=== PATIENT | male | born 1970 | race Caucasian/White ===

== ENCOUNTER 2018-07-12 12:28 | Inpatient (IN) ==
[2018-07-12] MEDS ORDERED: ZOFRAN INJ 4 MG VIAL ONE (12:34)
--- NOTE | 2018-07-12 13:09 | RAD ---
HISTORY: Dizziness, shortness of breath Study: Chest AP portable Comparison: None Findings: The heart is upper limits normal in size. No congestive heart failure is noted. There is a subtle right-sided perihilar infiltrate predominantly in the right upper lobe and suggestive of pneumonia. The remainder of the lung [place] are clear. No pleural effusions are identified. IMPRESSION: Subtle right perihilar pneumonia Reported By:
[2018-07-12 13:17] LABS: BASOPHILS % (AUTO) 0.6 % (0.2-1.0); EOSINOPHILS % (AUTO) 0.4 % (0.9-2.9); HEMATOCRIT 39.2 % (42.0-54.0); HEMOGLOBIN 12.6 g/dL (13.5-18.0); LYMPHOCYTES # (AUTO) 1.5 X10^3/uL (1.3-2.9); LYMPHOCYTES % (AUTO) 20.6 % (21.0-51.0); MEAN CORPUSCULAR HEMOGLOBIN 21.7 pg (27.0-34.0); MEAN CORPUSCULAR HGB CONC 32.2 g/dL (33.0-35.0); MEAN CORPUSCULAR VOLUME 67.5 fL (80.0-100.0); MEAN PLATELET VOLUME 8.8 fL (7.4-11.0); MONOCYTES # (AUTO) 0.5 x10^3/uL (0.3-0.8); NEUTROPHILS # (AUTO) 5.2 x10^3/uL (2.2-4.8); NEUTROPHILS % (AUTO) 71.4 % (42.0-75.0); PLATELET COUNT 220 X10^3/uL (150.0-450.0); RED CELL DISTRIBUTION WIDTH 19.1 % (11.6-16.5); WHITE BLOOD COUNT 7.3 X10^3/uL (3.6-10.0)
[2018-07-12] MEDS ORDERED: NS 1000 ML 1,000 ML ONE ×2 (13:22→15:05)
[2018-07-12] MEDS ORDERED: NS 1000 ML 1,000 ML IV ONE ×2 (13:26→15:08)
[2018-07-12 13:32] LABS: HYPOCHROMASIA 2+; METAMYELOCYTES % 3; PLATELET MORPHOLOGY COMMENT NORMAL (NORMAL)
[2018-07-12 13:33] LABS: ANISOCYTOSIS 1+; MICROCYTOSIS 1+; OVALOCYTES SLIGHT; POIKILOCYTOSIS SLIGHT
[2018-07-12 13:35] LABS: BLOOD UREA NITROGEN 17 mg/dL (7-18); CARBON DIOXIDE 25.7 mmol/L (21-32); CHLORIDE 105 mmol/L (98-107); SODIUM 140 mmol/L (136-145); eGFR NON BLACK RACES > 60 (>60)
--- NOTE | 2018-07-12 13:37 | DR.DIZZY ---
HPI Time seen Time Seen by Provider: 07/12/18 12:48 PCP Primary Care Physician: DALIA CRUZ Complaint Chief Complaint Doctor Comments: He presented via EMS with above c/o onset a shot while ago. There is no associated chest pain. Chief Complaint:: PT. C/O DIZZINESS AND SHORTNESS OF BREATH. PT. STATES HE WAS WORKING AND HAD TO SIT DOWN. Nurses Notes Reviewed Nurses Notes Review: Yes Source History Provided: Patient and EMS Mode of Arrival Mode of Arrival: EMS Timing Onset of Chief Complaint: 07/12/18 Context Stroke Symptoms: None PMH PMH Past Medical History: Yes Past Medical History: Dyslipidemia and Hypertension Past Surgical History: Yes Surgical History: Cholecystectomy and Tonsillectomy Family History History of Family Medical Conditions: Yes Family Medical History: Cancer, Heart Failure and Hypertension Social History Does patient currently use any type of tobacco product: No Have you used tobacco products in the last 12 months: No Type of Tobacco Use: None Does any household member use tobacco: No Alcohol Use: None Do you use any recreational Drugs:: No Lives With: Alone Lives Where: Home infectious screening In the last 2 months have you had wt loss of >10#?: NO Have you had fever, night sweats or hemotysis?: No Have you traveled outside the country in the last 6 months?: No Isolation: Standard ROS Review of Systems Constitutional: No Symptoms Reported Eyes: No Symptoms Reported ENTM: No Symptoms Reported Respiratoy: No Symptoms Reported and Short of Breath Cardiovascular: No Symptoms Reported Gastrointestinal/Abdominal: No Symptoms Reported Genitourinary: No Symptoms Reported Neurological: Dizziness Musculoskeletal: No Symptoms Reported Integumentary: No Symptoms Reported Hematologic/Lymphatic: No Symptoms Reported Endocrine: No Symptoms Reported Psychiatric: No Symptoms Reported PE Vital Signs Vitals: Temperature 97 F Pulse Rate [Apical] 91 Pulse Rate 138 Respiratory Rate 18 Blood Pressure [Left Arm] 113/59 Blood Pressure 109/63 O2 Sat by Pulse Oximetry 100 General Limitations: No Limitations Head Head Exam: Normal Inspection Eyes Eye exam: Normal Appearance and EOMI ENT ENT Exam: Normal Exam, Normal Oropharynx and Mucous Membranes Moist Neck Neck Exam: Normal Inspection, Full ROM and Trachea Midline Chest Chest Inspection: Normal Inspection and Symmetric Chest Wall Rise Respiratory Respiratory Exam: Normal Lung Sounds Bilat and Accessory Muscle Use Cardiovascular Cardiovascular Exam: Irregular Rhythm, +S1 and +S2 Abdominal Exam Abdominal Exam: Normal Inspection and Normal Bowel Sounds Rectal Rectal Exam: Deferred Extremeties Extremities Exam: Normal Inspection and Full ROM Back Back Exam: Normal Inspection Neurologic Neurological Exam: Alert and Oriented X3 Psychiatric Psychiatric Exam: Normal Affect and Normal Mood Skin Skin Exam: Warm, Dry and Normal Color COURSE Reevaluation 1st: Improved 2nd: Improved Education/Counseling Education/Counseling: Patient, Family, Education and Counseling Educated On: Treatment, Diagnosis, Prognosis and Needs for Follow Up ROR Labs Reviewed Laboratory Results Reviewed?: Yes Result Diagrams: 07/12/18 13:07 07/12/18 13:07 Laboratory: WBC 7.3 X10^3/uL (3.6-10.0) 07/12/18 13:07 RBC 5.80 X10^6/uL (4.7-6.0) 07/12/18 13:07 Hgb 12.6 g/dL (13.5-18.0) L 07/12/18 13:07 Hct 39.2 % (42.0-54.0) L 07/12/18 13:07 MCV 67.5 fL (80.0-100.0) L 07/12/18 13:07 MCH 21.7 pg (27.0-34.0) L 07/12/18 13:07 MCHC 32.2 g/dL (33.0-35.0) L 07/12/18 13:07 RDW 19.1 % (11.6-16.5) H 07/12/18 13:07 Plt Count 220 X10^3/uL (150.0-450.0) 07/12/18 13:07 Plt Count Comment Adequate (ADEQUATE) 07/12/18 13:07 MPV 8.8 fL (7.4-11.0) 07/12/18 13:07 Neut % (Auto) 71.4 % (42.0-75.0) 07/12/18 13:07 Lymph % (Auto) 20.6 % (21.0-51.0) L 07/12/18 13:07 [place] % (Auto) 7.0 % (0.0-13.0) 07/12/18 13:07 Eos % (Auto) 0.4 % (0.9-2.9) L 07/12/18 13:07 Baso % (Auto) 0.6 % (0.2-1.0) 07/12/18 13:07 Neut # (Auto) 5.2 x10^3/uL (2.2-4.8) H 07/12/18 13:07 Lymph # (Auto) 1.5 X10^3/uL (1.3-2.9) 07/12/18 13:07 [place] # (Auto) 0.5 x10^3/uL (0.3-0.8) 07/12/18 13:07 Eos # (Auto) 0.0 x10^3/uL (0.0-0.2) 07/12/18 13:07 Baso # (Auto) 0.0 X10^3/uL (0.0-0.1) 07/12/18 13:07 Absolute Nucleated RBC 0.0 /100WBC 07/12/18 13:07 Total Counted 100 07/12/18 13:07 Neutrophils % (Manual) 65 % (39-76) 07/12/18 13:07 Lymphocytes % (Manual) 27 % (13-43) 07/12/18 13:07 Monocytes % (Manual) 4 % (4-9) 07/12/18 13:07 Eosinophils % (Manual) 1 % (0-6) 07/12/18 13:07 Metamyelocytes % 3 07/12/18 13:07 Plt Morphology Comment Normal (NORMAL) 07/12/18 13:07 RBC Morphology Abnormal (NORMAL) 07/12/18 13:07 Hypochromasia 2+ A 07/12/18 13:07 Poikilocytosis Slight A 07/12/18 13:07 Anisocytosis 1+ A 07/12/18 13:07 Microcytosis 1+ A 07/12/18 13:07 Ovalocytes Slight A 07/12/18 13:07 INR Target Range - 07/12/18 13:07 INR 0.99 (0.8-1.3) 07/12/18 13:07 APTT 30.0 SECONDS (22.9-36.5) 07/12/18 13:07 PTT Comment - 07/12/18 13:07 D-Dimer < 100 ng/mL (0-400) 07/12/18 13:07 Sodium 140 mmol/L (136-145) 07/12/18 13:07 Corrected Sodium TNP 07/12/18 13:07 Potassium 3.8 mmol/L (3.5-5.1) 07/12/18 13:07 Chloride 105 mmol/L (98-107) 07/12/18 13:07 Carbon Dioxide 25.7 mmol/L (21-32) 07/12/18 13:07 BUN 17 mg/dL (7-18) 07/12/18 13:07 Creatinine 1.00 mg/dL (0.70-1.30) 07/12/18 13:07 Est GFR (MDRD) Af Amer > 60 (>60) 07/12/18 13:07 Est GFR (MDRD) Non-Af > 60 (>60) 07/12/18 13:07 Glucose 92 mg/dL (65-99) 07/12/18 13:07 Calcium 8.0 mg/dL (8.5-10.1) L 07/12/18 13:07 Creatine Kinase 140 Units/L (39-308) 07/12/18 13:07 CK-MB (CK-2) 2.0 ng/mL (0-4.0) 07/12/18 13:07 CK/CKMB % Calc 1.4 % (<4) 07/12/18 13:07 Troponin I < 0.02 ng/mL (0-1.5) 07/12/18 13:07 TSH 3rd Generation 3.001 uIU/mL (0.358-3.74) 07/12/18 13:07 XRAY XRAY Interpreted by: Radiologist XRAY Findings: CXR: Subtle rt. hilar pneumonia. EKG Rate: 149 [place]: Normal Rhythm: Afib Diagnosis Discharge Problem: New onset a-fib, Acute hypotension, Lobar pneumonia
[2018-07-12 14:08] LABS: CKMB % 1.4 % (<4); CREATINE KINASE 140 Units/L (39-308); TROPONIN I < 0.02 ng/mL (0-1.5)
[2018-07-12] MEDS ORDERED: LANOXIN INJ IVP ONE ×2 (14:18→14:36)
[2018-07-12] MEDS ORDERED: LANOXIN INJ ONE ×2 (14:18→15:05)
[2018-07-12] MEDS ORDERED: DUONEB 0.5 MG/3 MG ONE (16:17)
[2018-07-12] MEDS ORDERED: DUONEB 0.5 MG/3 MG NEB ONE (16:17)
[2018-07-12] MEDS ORDERED: LEVAQUIN PREMIX IV 750 MG 750 MG/150 ML BAG IV ONE (16:36)
[2018-07-12] MEDS ORDERED: LOPRESSOR INJ 5 MG AMP IVP ONE (18:19)
[2018-07-12] MEDS: NS 1000 ML 1,000 ML IV SCH (18:40)
[2018-07-12 19:16] LABS: CKMB % 1.4 % (<4); CREATINE KINASE 130 Units/L (39-308); CREATINE KINASE MB 1.8 ng/mL (0-4.0); TROPONIN I < 0.02 ng/mL (0-1.5)
[2018-07-12] MEDS ORDERED: KLOR-CON PO PRN (19:38)
[2018-07-12] MEDS ORDERED: MICRO K EXTEN CAP 10 MEQ PO PRN (19:38)
[2018-07-12] MEDS ORDERED: K-DUR TAB 20 MEQ PO PRN (19:38)
[2018-07-12] MEDS ORDERED: POTASSIUM CHL 60 MEQ/NS 0.45% 500 ML IV PRN (19:38)
[2018-07-12] MEDS ORDERED: POTASSIUM CHL 40 MEQ/NS 0.45% 500 ML IV PRN (19:38)
[2018-07-12] MEDS ORDERED: K-RIDER 10 MEQ/NS 100 ML 10 MEQ/100 ML BAG IV PRN (19:38)
[2018-07-12] MEDS ORDERED: POTASSIUM CHLORIDE LIQ 20 MEQ UDC PO PRN (19:38)
[2018-07-12] MEDS ORDERED: NEXTERONE IV 150 MG PREMIX* 150 MG/100 ML BAG IV ONE ×2 (20:00→20:13)
[2018-07-12] MEDS ORDERED: HEPARIN SODIUM IN D5W 25,000 UNITS/500 ML BAG IV ONE (20:12)
[2018-07-12] MEDS ORDERED: NEXTERONE IV 360 MG PREMIX* 360 MG/200 ML BAG IV ONE (20:13)
[2018-07-12] MEDS ORDERED: HEPARIN SODIUM INJ 5000 UNITS ONE (20:13)
[2018-07-12] MEDS: PROTONIX TAB 40 MG PO SCH (20:20)
[2018-07-12] MEDS: HEPARIN SODIUM IN D5W 25,000 UNITS/500 ML BAG IV PRN (20:26)
[2018-07-12] MEDS ORDERED: DRUG FILTER EXTENSION SET ONE (20:26)
[2018-07-12] MEDS ORDERED: NEXTERONE IV 360 MG PREMIX* 360 MG/200 ML BAG IV PRN (20:30)
[2018-07-12] MEDS: MAGNESIUM SULFATE 1 GRAM/100 mL PREMIX 1 GM/100 ML BAG IV PRN ×2 (20:33→23:05)
[2018-07-12] MEDS ORDERED: XOPENEX 1.25 MG/3 ML NEBULE NEB SCH (21:00)
[2018-07-12] MEDS: XOPENEX 1.25 MG/3 ML NEBULE NEB SCH (21:03)
[2018-07-13 00:06] LABS: CKMB % 1.3 % (<4); CREATINE KINASE 117 Units/L (39-308); CREATINE KINASE MB 1.5 ng/mL (0-4.0); TROPONIN I < 0.02 ng/mL (0-1.5)
[2018-07-13] MEDS ORDERED: NEXTERONE IV 360 MG PREMIX* 360 MG/200 ML BAG IV PRN (02:30)
[2018-07-13] MEDS ORDERED: HEPARIN SODIUM INJ 5000 UNITS IVP ONE ×2 (03:08→16:35)
[2018-07-13] MEDS ORDERED: HEPARIN SODIUM INJ 5000 UNITS ONE (03:11)
--- NOTE | 2018-07-13 05:45 | RAD ---
Examination: Chest, PA and lateral views History: Follow-up pneumonia Comparison 07/12/2018 Findings: Normal heart size with essentially clear lungs and pleural spaces. The right hilar and perihilar area is partly obscured by overlying surface monitor artifacts. There is no developing consolidation, pneumothorax or pleural fluid. Impression: No acute chest abnormality demonstrated. The previously described area of right perihilar infiltrate is partly obscured on the current study. Reported By:
[2018-07-13 05:58] LABS: BASOPHILS % (AUTO) 0.7 % (0.2-1.0); EOSINOPHILS % (AUTO) 0.2 % (0.9-2.9); HEMATOCRIT 37.5 % (42.0-54.0); HEMOGLOBIN 12.2 g/dL (13.5-18.0); LYMPHOCYTES # (AUTO) 1.8 X10^3/uL (1.3-2.9); LYMPHOCYTES % (AUTO) 37.3 % (21.0-51.0); MEAN CORPUSCULAR HEMOGLOBIN 23.1 pg (27.0-34.0); MEAN CORPUSCULAR HGB CONC 32.4 g/dL (33.0-35.0); MEAN CORPUSCULAR VOLUME 71.2 fL (80.0-100.0); MEAN PLATELET VOLUME 9.5 fL (7.4-11.0); MONOCYTES # (AUTO) 0.4 x10^3/uL (0.3-0.8); MONOCYTES % (AUTO) 7.8 % (0.0-13.0); NEUTROPHILS # (AUTO) 2.6 x10^3/uL (2.2-4.8); PLATELET COUNT 202 X10^3/uL (150.0-450.0); RED BLOOD COUNT 5.27 X10^6/uL (4.7-6.0); WHITE BLOOD COUNT 4.8 X10^3/uL (3.6-10.0)
[2018-07-13 06:18] LABS: BLOOD UREA NITROGEN 11 mg/dL (7-18); CALCIUM 7.9 mg/dL (8.5-10.1); CARBON DIOXIDE 24.9 mmol/L (21-32); CHLORIDE 106 mmol/L (98-107); CKMB % 1.3 % (<4); CREATINE KINASE 117 Units/L (39-308); CREATINE KINASE MB 1.5 ng/mL (0-4.0); CREATININE 1.01 mg/dL (0.70-1.30); MAGNESIUM 2.3 mg/dL (1.7-2.9); SODIUM 142 mmol/L (136-145); TROPONIN I < 0.02 ng/mL (0-1.5); eGFR NON BLACK RACES > 60 (>60)
[2018-07-13 06:32] LABS: BAND NEUTROPHILS % 1 % (0-10); PLATELET MORPHOLOGY COMMENT NORMAL (NORMAL)
[2018-07-13 06:33] LABS: ANISOCYTOSIS SLIGHT; HYPOCHROMASIA 1+; MICROCYTOSIS SLIGHT
[2018-07-13 06:34] LABS: OVALOCYTES SLIGHT
[2018-07-13] MEDS: XOPENEX 1.25 MG/3 ML NEBULE NEB SCH ×4 (08:20→20:24)
[2018-07-13] MEDS: THYROID PO SCH (08:49)
[2018-07-13] MEDS: CRESTOR TAB 10 MG PO SCH (08:49)
[2018-07-13] MEDS: CELEXA PO SCH (08:49)
[2018-07-13] MEDS: PROTONIX TAB 40 MG PO SCH ×2 (08:49→20:05)
[2018-07-13] MEDS: FLONASE NASAL SPRAY ENOSTRIL SCH (08:53)
[2018-07-13] MEDS ORDERED: CITALOPRAM HYDROBROMIDE 20 MG PO SCH (09:00)
[2018-07-13] MEDS ORDERED: ERGOCALCIFEROL PO SCH (09:00)
[2018-07-13] MEDS: CORDARONE TAB 200 MG PO SCH ×3 (11:24→20:06)
[2018-07-13] MEDS ORDERED: NS 100 ML IV + SPIKE MINIBAG* 100 ML IV ONE (13:46)
[2018-07-13] MEDS ORDERED: LANOXIN INJ IVP ONE (15:09)
--- NOTE | 2018-07-13 16:10 | CT ---
HISTORY: Chest pains. New onset of atrial fibrillation. Lobar pneumonia, hypertension. Study: CTA chest Comparison: Chest x-ray done 07/13/2018. Technique: Multiple axial images of the chest were obtained from the thoracic inlet to the upper abdomen during the administration of IV contrast. In addition to standard multi planar reconstructions, MIP reconstructions were performed in axial, coronal and sagittal planes. Dose reduction techniques utilized automatic exposure control. Findings: The mediastinum does not demonstrate significant pathological lymphadenopathy. There is no pericardial effusion observed. The thoracic aorta is normal in its contour without evidence for aneurysmal dilatation. The central pulmonary arterial system does not demonstrate central filling defects to suggest pulmonary emboli. Evaluation of the lung parenchyma reveals a few small areas of interstitial prominence involving lower lobe regions bilaterally. These appear chronic. No consolidation or pleural fluid is seen.. No pulmonary nodule or mass can be identified. The bony thorax is unremarkable in its appearance. The visualized portions of the upper abdomen are grossly unremarkable. IMPRESSION: No evidence of thoracic aortic aneurysm or pulmonary embolus. Minimal areas of increased interstitial markings present involving the lung bases posteriorly and bilaterally. These appear chronic. No consolidation or fluid is seen. There is no evidence of lung nodule or adenopathy. Reported By:
[2018-07-13] MEDS ORDERED: LEVAQUIN PREMIX IV 750 MG 750 MG/150 ML BAG IV ONE (16:30)
[2018-07-13] MEDS ORDERED: TYLENOL 325 MG TAB PO PRN (19:58)
[2018-07-13] MEDS ORDERED: TYLENOL 325 MG TAB PO ONE (20:02)
[2018-07-13] MEDS: HEPARIN SODIUM IN D5W 25,000 UNITS/500 ML BAG IV PRN (20:07)
[2018-07-13] MEDS: NS 1000 ML 1,000 ML IV SCH (20:10)
[2018-07-13] MEDS ORDERED: LEVAQUIN PREMIX IV 500 MG 500 MG/100 ML BAG IV SCH (21:00)
[2018-07-14 05:17] LABS: BASOPHILS % (AUTO) 0.3 % (0.2-1.0); EOSINOPHILS % (AUTO) 0.4 % (0.9-2.9); HEMATOCRIT 36.9 % (42.0-54.0); HEMOGLOBIN 11.8 g/dL (13.5-18.0); LYMPHOCYTES # (AUTO) 1.5 X10^3/uL (1.3-2.9); LYMPHOCYTES % (AUTO) 25.3 % (21.0-51.0); MEAN CORPUSCULAR HGB CONC 31.9 g/dL (33.0-35.0); MEAN CORPUSCULAR VOLUME 72.1 fL (80.0-100.0); MEAN PLATELET VOLUME 9.3 fL (7.4-11.0); MONOCYTES # (AUTO) 0.3 x10^3/uL (0.3-0.8); MONOCYTES % (AUTO) 5.4 % (0.0-13.0); NEUTROPHILS % (AUTO) 68.6 % (42.0-75.0); PLATELET COUNT 169 X10^3/uL (150.0-450.0); RED BLOOD COUNT 5.12 X10^6/uL (4.7-6.0); WHITE BLOOD COUNT 5.8 X10^3/uL (3.6-10.0)
[2018-07-14 05:29] LABS: ALANINE AMINOTRANSFERASE 27 Units/L (12-78); ALBUMIN 2.9 g/dL (3.4-5.0); ALKALINE PHOSPHATASE 58 Units/L (46-116); ASPARTATE AMINO TRANSFERASE 15 Units/L (15-37); BLOOD UREA NITROGEN 10 mg/dL (7-18); CALCIUM 7.9 mg/dL (8.5-10.1); CARBON DIOXIDE 25.1 mmol/L (21-32); CHLORIDE 106 mmol/L (98-107); COR CA(FOR HYPOALB) 8.8 mg/dL (8.5-10.1); CREATININE 0.96 mg/dL (0.70-1.30); SODIUM 143 mmol/L (136-145); TOTAL PROTEIN 6.5 g/dL (6.4-8.2); eGFR NON BLACK RACES > 60 (>60)
[2018-07-14 05:33] VITALS: BMI 36.0
[2018-07-14 05:56] LABS: PLATELET MORPHOLOGY COMMENT NORMAL (NORMAL)
[2018-07-14 05:57] LABS: ANISOCYTOSIS SLIGHT; HYPOCHROMASIA 1+
[2018-07-14] MEDS: CELEXA PO SCH (08:52)
[2018-07-14] MEDS: PROTONIX TAB 40 MG PO SCH (08:52)
[2018-07-14] MEDS: CRESTOR TAB 10 MG PO SCH (08:53)
[2018-07-14] MEDS: FLONASE NASAL SPRAY ENOSTRIL SCH (08:53)
[2018-07-14] MEDS: CORDARONE TAB 200 MG PO SCH (08:53)
[2018-07-14] MEDS: THYROID PO SCH (08:54)
[2018-07-14] MEDS: XOPENEX 1.25 MG/3 ML NEBULE NEB SCH (09:00)
[2018-07-14] MEDS ORDERED: XANAX PO ONE ×2 (09:45→10:40)
[2018-07-14 10:46] VITALS: BP 137/83
== END 2018-07-14 11:00 | disposition short-term general hospital (02) | DRG 308 ==
LOC: ICU 12:28 → ER 12:28 → ICU 16:50
PROVIDERS: ADMIT Internal Medicine; ATTEND Internal Medicine
DX: E03.8 Other specified hypothyroidism; R79.1 Abnormal coagulation profile; K21.9 Gastro-esophageal reflux disease without esophagitis; I48.91 Unspecified atrial fibrillation; R07.89 Other chest pain; E78.2 Mixed hyperlipidemia; J18.8 Other pneumonia, unspecified organism; R53.1 Weakness; I95.89 Other hypotension; R42 Dizziness and giddiness; R94.31 Abnormal electrocardiogram [ECG] [EKG]; R06.02 Shortness of breath
CPT/HCPCS: 36415; 71010; 71020; 71045; 71046; 71275; 80048; 80053; 82550; 82553; 83735; 84443; 84484; 85025; 85378; 85610; 85730; 87040; 87205; 93005; 93010; 94640; 96365; 96367; 96374; 96375; 99221; 99231; 99284; A4222; G0378; J0282; J1160; J1644; J1956; J2405; J3475; J3490; J7030; J7050; J7620